=== PATIENT | female | born 1950 | race Caucasian/White ===

== ENCOUNTER 2016-09-08 09:29 | Inpatient (IN) | payer BC ==
[2016-09-05 17:35] VITALS: BMI 30.7
[~2016-09-08] VITALS: Ht 167.6 cm; Wt 96.9 kg
[2016-09-08] VITALS (19 sets, daily range): BP systolic 128–165; BP diastolic 64–86; PULSE 70–94; RESP 15–26; Ht 167.6 cm; Wt 96.9 kg
[~2016-09-08 09:29] MED LIST: CEFAZOLIN 1 GM INJ ONE; CEFAZOLIN 2 GM/50 ML (PMX) 50 ML IVPB SCH
[2016-09-08] MEDS ORDERED: LACTATED RINGER'S 1,000 ML IV* ONE (10:30)
[2016-09-08] MEDS ORDERED: ROPI1TAB PO (11:11)
[2016-09-08] MEDS ORDERED: PANT40TA4 PO (11:11)
[2016-09-08] MEDS ORDERED: LOSA100T7 PO (11:11)
[2016-09-08] MEDS ORDERED: NIFE60TA7 PO (11:11)
[2016-09-08] MEDS ORDERED: OMEG1CAP30 PO (11:11)
[2016-09-08] MEDS ORDERED: ATOR40TA68 PO (11:11)
[2016-09-08] MEDS ORDERED: HYDR-905 PO (11:11)
[2016-09-08] MEDS ORDERED: DAPA10TA PO (11:11)
[2016-09-08] MEDS ORDERED: BUPR300T48 PO (11:11)
[2016-09-08] MEDS ORDERED: SERT100T PO (11:11)
[2016-09-08] MEDS ORDERED: GABA300S PO (11:11)
[2016-09-08] MEDS ORDERED: SURGIFOAM POWDER 1 GM KIT ONE (12:23)
[2016-09-08] MEDS ORDERED: THROMBIN 5000 UNIT VIAL ONE ×2 (12:23→14:37)
[2016-09-08] MEDS ORDERED: GELATIN SIZE 100 SPONGE ONE (12:23)
[2016-09-08] MEDS ORDERED: BUPIVACAINE 0.25%/EPI (SDV) 30 ML INJ ONE (12:23)
[2016-09-08] MEDS ORDERED: CA CHLORIDE 10% 10 ML SYRINGE ONE ×2 (12:35→14:37)
[2016-09-08] MEDS ORDERED: SODIUM CL BACTERIOSTATIC 30 ML INJ ONE (12:35)
[2016-09-08] MEDS ORDERED: POLYMYXIN/BACITRACIN 1L IRRIG ONE (12:35)
[2016-09-08] MEDS ORDERED: LIDOCAINE 100 MG SYRINGE ONE (12:44)
[2016-09-08] MEDS ORDERED: DEXAMETHASONE 4 MG/ML 1 ML INJ ONE (12:44)
[2016-09-08] MEDS ORDERED: FENTAnyl 50 MCG/ML VIAL ONE ×3 (12:44→14:42)
[2016-09-08] MEDS ORDERED: GLYCOPYRROLATE 1 MG INJ ONE (12:44)
[2016-09-08] MEDS ORDERED: NEOSTIGMINE 3 MG/3 ML SYRINGE ONE (12:44)
[2016-09-08] MEDS ORDERED: ROCURONIUM 50 MG INJ ONE (12:44)
[2016-09-08] MEDS ORDERED: ONDANSETRON 4 MG INJ ONE (12:44)
[2016-09-08] MEDS ORDERED: MIDAZOLAM 1 MG/ML 2 ML INJ ONE (12:44)
[2016-09-08] MEDS ORDERED: PROPOFOL 20 ML ONE (12:44)
[2016-09-08] MEDS ORDERED: D5W-0.45 NACL + KCL 20 MEQ 1,000 ML IV SCH (12:51)
--- NOTE | 2016-09-08 12:51 | HPN ---
Date/Time of Note Date/Time of Note DATE: 09/08/16 TIME: 12:51 Interval H&P Admission Note Pt. seen H&P reviewed: No system changes VIANEY MYERS MD Sep 08, 2016 12:51
[2016-09-08] MEDS ORDERED: ACETAMINOPHEN 325 MG TAB PO PRN (13:00)
[2016-09-08] MEDS ORDERED: DIPHENHYDRAMINE 50 MG INJ IV PRN ×2 (13:00→14:00)
[2016-09-08] MEDS ORDERED: CEPASTAT LOZENGE MT PRN (13:00)
[2016-09-08] MEDS ORDERED: HYDROmorphONE 1 MG/ML SYG IV PRN (13:00)
[2016-09-08] MEDS ORDERED: BISACODYL 10 MG SUPP PR PRN (13:00)
[2016-09-08] MEDS ORDERED: HYDROCODONE/APAP (10/325) TAB PO PRN ×2 (13:00)
[2016-09-08] MEDS ORDERED: AL HYDROX/MG HYDROX/SIMETH 30 ML CUP PO PRN (13:00)
[2016-09-08] MEDS ORDERED: ONDANSETRON 4 MG INJ IV PRN ×2 (13:00→14:00)
[2016-09-08] MEDS ORDERED: NALOXONE (0.4 MG/ML) INJ IV PRN (13:00)
[2016-09-08] MEDS ORDERED: DIPHENHYDRAMINE 25 MG CAP PO PRN (13:00)
[2016-09-08] MEDS ORDERED: CEFAZOLIN 1 GM INJ ONE (13:28)
[2016-09-08] MEDS ORDERED: TRIMETHOBENZAMIDE 100 MG/ML VIAL IM PRN (14:00)
[2016-09-08] MEDS ORDERED: FENTAnyl 50 MCG/ML VIAL IV PRN ×3 (14:00)
[2016-09-08] MEDS ORDERED: HYDROmorphONE (0.2 MG/ML) 10ML SYG IV PRN ×2 (14:00)
[2016-09-08] MEDS ORDERED: MIDAZOLAM 1 MG/ML 2 ML INJ IV PRN (14:00)
[2016-09-08] MEDS ORDERED: MEPERIDINE 25 MG INJ IV PRN (14:00)
[2016-09-08] MEDS ORDERED: LABETALOL HCL 20MG INJ IV PRN (14:00)
[2016-09-08] MEDS ORDERED: hydrALAzine 20 MG INJ IV PRN (14:00)
[2016-09-08] MEDS ORDERED: EPHEDrine SULFATE 50 MG/5 ML SYG IV PRN (14:00)
[2016-09-08] MEDS: HYDROmorphONE (0.2 MG/ML) 10ML SYG IV PRN ×3 (15:30→15:48)
[2016-09-08] MEDS: HYDROmorphONE 0.2 MG/ML PCA IV SCH (15:31)
--- NOTE | 2016-09-08 15:50 | RADRPT ---
PROCEDURE: Intraoperative imaging of the lumbar spine with fluoroscopy. CLINICAL INDICATION: Back pain. Intraoperative. TECHNIQUE: 5 images of the lumbar spine were obtained in the operating room with an image intensif ier. No radiologist was in attendance. 22.9 seconds of fluoroscopy time was used. COMPARISON: No prior study is available for comparison. FINDINGS: Images demonstrate surgical instruments overlying the lower lumbar spine. IMPRESSION: 1. Intraoperative imaging of the lumbar spine. RPTAT: QQ .Reagan Reeves MD, MD Date Time Electronically viewed and signed by .Reagan Reeves MD, MD on 09/08/2016 15:50 .R/
[2016-09-08] MEDS: 1/2 NS + KCL 20 MEQ 1,000 ML IV SCH ×2 (16:51→22:04)
[2016-09-08] MEDS: CYCLOBENZAPRINE 10 MG TAB PO PRN ×2 (16:51→22:04)
[2016-09-08] MEDS: CEFAZOLIN 1 GM/50 ML (PMX) 50 ML IVPB SCH (17:35)
--- NOTE | 2016-09-08 18:13 | CONS ---
Date/Time of Note Date/Time of Note DATE: 09/08/16 TIME: 18:06 Assessment/Plan Assessment/Plan Problems: (1) Diabetes mellitus type 2 in obese Status: Chronic Comment: Her only medication is been fark Sieg as an outpatient. For now we will just observe this and keep an eye on it. (2) Obesity (BMI 30.0-34.9) Status: Chronic Comment: Counseled. When she is able to ambulate in rehab I believe that this will improve (3) Essential hypertension Status: Chronic Comment: We will continue her outpatient medication regimen. (4) Gastroesophageal reflux disease Status: Chronic Comment: Continue PPI. Therapy. Please note that evaluation for bone density and issues regarding long-term PPI therapy are deferred to her primary care physician Qualifiers: Qualified Code: K21.9 - Gastroesophageal reflux disease without esophagitis (5) Hypertriglyceridemia Status: Chronic Comment: She has hypertriglyceridemia with hypercholesterolemia. She is on both statin therapy and omega-3 fish oil appropriately and this will be continued (6) Secondary dysthymia Status: Chronic Comment: This is a reactional situation. She will be maintained on her medications will do everything we can to encourage her successful recovery from surgery (7) Aftercare following surgery of the musculoskeletal system Status: Acute Comment: Immediately postop and doing well Consultation Date/Type/Reason Admit Date/Time Sep 08, 2016 at 09:29 Date of Consultation: Sep 08, 2016 Type of Consultation: Internal medicine Reason for Consultation Postoperative care following lumbar spinal fusion Referring Provider: VIANEY MYERS MD Hx of Present Illness 66-year-old female brought in electively for lumbar spinal correction after failure of all conservative medical treatments. Please note the patient is anxious about recuperating as fast as possible due to recent diagnosis and her spouse of a lung carcinoma Patient is resting in bed and postoperatively. She has been cleared for the surgery by her primary care farm mortgage agent Dr. Rosanne Duarte Constitutional: no complaints Eyes: no complaints ENT: no complaints Respiratory: no complaints Cardiovascular: no complaints Gastrointestinal: no complaints Genitourinary: no complaints Musculoskeletal: back pain Skin: no complaints Neurologic: no complaints Past Medical History Restless leg syndrome; lipoma; history of HSV-2; gastroesophageal reflux disease ; irritable bowel syndrome; osteoarthritis/DJD Medical History: diabetes (Type II), high cholesterol, hypertension Past Surgical History Status post tonsillectomy and adenoidectomy; status post left total shoulder replacement 2015; status post septoplasty 2012; status post rhinoplasty; status post tonsillectomy; status post LEEP procedure Family History Significant Family History: diabetes Social History Alcohol Use: rarely Smoking Status: Never smoker Drug Use: none Other Social History lives with her spouse. Please note her spouse has recently been diagnosed with a lung cancer and is starting radiation therapy. Exam/Review of Systems Vital Signs Vitals Vital Signs Date Time Temp Pulse Resp B/P Pulse Ox O2 Delivery O2 Flow Rate FiO2 09/08/16 17:00 16 09/08/16 16:45 Nasal Cannula 3.0 09/08/16 16:20 78 135/75 96 09/08/16 15:41 98.9 Exam Constitutional: alert, oriented Eyes: EOMI, nl conjunctiva, nl lids ENMT: nl external ears & nose, nl lips & teeth, nl nasal mucosa & septum Neck: non-tender, supple Respiratory: clear to auscultation, normal air movement Cardiovascular: nl pulses, regular rate and rhythm Gastrointestinal: nl liver, spleen, non-tender, soft Extremities: normal pulses Neurological: ROCK CONTRACTOR II-XII intact, nl mental status, nl speech, nl strength Lymph: nl lymph nodes Medications Medications Current Medications Acetaminophen/ Hydrocodone Bitart ([place] (10/325)) 1 tab Q4H PRN PO PAIN LEVEL 1-5; Start 09/08/16 at 13:00 Acetaminophen/ Hydrocodone Bitart ([place] (10/325)) 2 tab Q4H PRN PO PAIN LEVEL 6-10; Start 09/08/16 at 13:00 Hydromorphone HCl 0.2 mg 0.2 mg Q1H PRN IV BREAKTHROUGH PAIN; Start 09/08/16 at 13:00 Cefazolin Sodium (Ancef 1 Gm/50 ml (Pmx)) 50 ml @ 100 mls/hr Q8H IVPB Last administered on 09/08/16t 17:35; Admin Dose 100 MLS/HR; Start 09/08/16 at 18:00 ; Stop 09/09/16 at 10:29 Ondansetron HCl (Zofran Inj) 4 mg Q6H PRN IV NAUSEA AND/OR VOMITING; Start at 13:00 Bisacodyl (Dulcolax Supp) 10 mg DAILY PRN [place] CONSTIPATION; Start 09/08/16 at 13 :00 Docusate Sodium (Colace) 100 mg BID PO ; Start 09/08/16 at 21:00 Pantoprazole (Protonix Iv) 40 mg DAILY@06 IV ; Start 09/09/16 at 06:00 Al Hydrox/Mg Hydrox/Simethicone (Mag-Al Plus) 15 ml Q6H PRN PO CONSTIPATION/ DYSPEPSIA; Start 09/08/16 at 13:00 Acetaminophen (Tylenol Tab) 650 mg Q4H PRN PO DEWITT OR TEMP GREATER THAN 101.3F; Start 09/08/16 at 13:00 Cyclobenzaprine HCl (Flexeril) 10 mg TID PRN PO MUSCLE SPASMS Last administered on 09/08/16 16:51; Admin Dose 10 MG; Start 09/08/16 at 13:00 Phenol (Cepastat Lozenge) 1 lozenge PRN PRN MT SORE THROAT; Start 09/08/16 at 13:00 Diphenhydramine HCl (Benadryl) 25 mg Q6H PRN PO ITCHING; Start 09/08/16 at 13: 00 Diphenhydramine HCl (Benadryl) 25 mg Q6H PRN IV ITCHING Last administered on 15:29; Admin Dose 25 MG; Start 09/08/16 at 13:00 Naloxone HCl (Narcan) 0.2 mg Q2M PRN IV RR 8 BREATHS/MIN OR LESS; Start at 13:00 Hydromorphone HCl (Dilaudid TRACTOR OPERATOR HELPER) TRACTOR OPERATOR HELPER to be started in PACU Q4PCA IV Last administered on 09/08/16 15:31; Admin Dose 6 MG; Start 09/08/16 at 13:00 Miscellaneous Information 1. Hold TRACTOR OPERATOR HELPER at 1,000... TRACTOR OPERATOR HELPER IV ; Start 09/08/16 at 13: 00 Potassium Chloride/Sodium Chloride (1/2 NS + KCl 20 Meq) 1,000 ml @ 100 mls/hr Q10H IV Last administered on 09/08/16 16:51; Admin Dose 100 MLS/HR; Start at 17:00 BRIA SALDAÑA MD Sep 08, 2016 18:12
--- NOTE | 2016-09-08 20:40 | OPR ---
DATE OF OPERATION: 09/08/2016 PREOPERATIVE DIAGNOSES: 1. L4-5, L5-S1 degenerative scoliosis and stenosis. 2. Radiculopathy. 3. Morbid obesity. Body mass index 38. POSTOPERATIVE DIAGNOSES: 1. L4-5, L5-S1 degenerative scoliosis and stenosis. 2. Radiculopathy. 3. Morbid obesity. Body mass index 38. OPERATION PERFORMED: 1. Left L4-5 and L5-S1 decompression with decompression of left L4, L5, and S1 nerve roots for sten osis. 2. Left L5 extraforaminal decompression. 3. Use of operative microscope. 4. Lateral localizing film x2. 5. Intraoperative neuromonitoring (2 hours). 6. Epidural injection via catheter. PRIMARY SURGEON: Serge Daugherty MD STRAWHAT BLOCKING OPERATOR: SOUMYA Chinchilla NEED FOR FEEDER LOADER: During this spinal surgical procedure, my assistant chief nursing officer was used to retrac t and protect the spinal nerves and dural sac. My assistant chief nursing officer also employed the suction catheters to evacuate blood from the surgical field to improve visualization of the neural structures. The navarro tant was medically necessary to facilitate the completion of the surgery in a safe and expeditious marisol. State of [place] regulations, as well as hospital bylaws, preclude the use of non-license d health care personnel, such as operating room technicians, to perform these functions. FINDINGS: Neuromonitoring at the start of the case revealed left L4 amplitude down 50%, left L5 amp litude down 20%, left S1 amplitude down 60%. At the end of the case, nerve signals returned to norm al. The patient had stenosis due to ligamentum and facet hypertrophy. ESTIMATED BLOOD LOSS: 30 mL. DRAINS: Two. SPECIMENS: None. COMPLICATIONS OF PROCEDURES: None. ANESTHESIOLOGIST: Avery Buchanan MD TYPE OF ANESTHESIA: General. INDICATIONS FOR PROCEDURE: This is a 66-year-old female with left lumbosacral radiculopathy in the setting of stenosis. She has failed nonoperative measures; therefore, I recommended proceeding with the above-mentioned surgery. Preoperatively, we discussed the risks, benefits, and alternatives. She understood and wished to proceed. DESCRIPTION OF PROCEDURE IN DETAIL: The patient was identified in the preoperative holding area, [facility], taken to the operating room, where she was successfully placed under general a nesthesia by Dr. Buchanan. Neuromonitoring leads were placed. Sequential compressive devices were applied. Neuromonitoring was utilized during the procedure for 2 hours to include SSEP, MEP, and E MG. This was performed by [place] Storkwitz. Start time was 1:15 p.m. Closure time was 3:15 p.m. The patient was placed in the operative table in prone position over a Nelson frame. All bony promi nences were well padded. The back was then prepped and draped in usual sterile fashion. Using the C-arm fluoroscope, I identified the incision site. I anesthetized skin, subcutaneous tissue, and pa raspinal musculature with 0.25% Marcaine and epinephrine. Incision was then made over the L4-5 and L5-S1 levels. The patient had morbid obesity with 4 inches of adipose tissue between the skin and t he dorsal fascia. The dorsal fascia was incised, and I subperiosteally dissected the L4, L5, and S1 lamina on the left. Due to the patient's obesity, I extended instrumentation to be utilized in ord er to perform the procedure. Once exposure was made, I took lateral film to confirm the correct lev els. Once this was confirmed, microscope was brought in. A left-sided decompression was performed at the L4-5 and L5-S1 levels. Laminectomy was performed. Ligamentum flavum was sharply dissected. I decompressed the canal and decompressed left L4, L5, and S1 nerve roots with visualization of eac h nerve root. Once this was done, the left L5 signal was still down, and therefore, I performed an extraforaminal left-sided decompression of the L5 nerve root using the 10 mm [employer] shaver and neuro monitoring. Once this was done, all nerve signals returned to normal. I irrigated the wound. I ir rigated the foramen. I injected Surgifoam into the wound and into the foramen. Hemostasis was achi eved. The wound was then irrigated. Valsalva maneuver was performed and there was no leak of CSF. The microscope was taken off the field. Of note, the C-arm was utilized during the [place] procedur e. I then passed an epidural catheter through which I injected 100 mcg of fentanyl and the catheter was pulled. Anesthesiologist mary kate peripheral blood, which was spun using the Bokecc device, and took the platelet-poor plasma and mixed this with thrombin and injected this over the dura for hemos tatic purposes. I then placed a deep subfascial drain and closed the deep fascia with #1 Vicryl sti tch. I then placed a superficial drain and closed the subcutaneous tissue with 2-0 Vicryl stitch. A 4-0 Monocryl closure was then performed. Dermabond and sterile dressings were then applied. The patient was then awakened from anesthesia and taken to recovery room in stable condition. Lap, spon ge, and instrument counts were correct x2. There were no apparent complications during the procedur e. The patient will be admitted to the orthopedic [facility] for routine postoperative care to include pain c ontrol, neurovascular checks, antibiotics, and physical therapy. Dictated By: SERGE COLINDRES/GAYLE Conf#: [id number] DID#: [id number]
[2016-09-08] MEDS: FISH OIL 1,000 MG CAP PO SCH (20:54)
[2016-09-08] MEDS: DOCUSATE SODIUM 100 MG CAP PO SCH (20:54)
[2016-09-08] MEDS: ATORVASTATIN 40 MG TAB PO SCH (20:54)
[2016-09-08] MEDS: ROPINIROLE 1 MG TAB PO SCH (20:56)
[2016-09-08] MEDS: GABAPENTIN 400 MG CAP PO SCH (20:56)
[2016-09-08] MEDS ORDERED: NIFEdipine (XL) 60 MG TAB PO ONE (21:00)
[2016-09-09] MEDS: CEFAZOLIN 1 GM/50 ML (PMX) 50 ML IVPB SCH ×2 (00:59→09:34)
[2016-09-09] MEDS: HYDROmorphONE 0.2 MG/ML PCA IV SCH (02:26)
[2016-09-09] MEDS: CYCLOBENZAPRINE 10 MG TAB PO PRN ×2 (04:28→13:27)
[2016-09-09 04:37] VITALS: BP 121/67; PULSE 79
[2016-09-09] MEDS ORDERED: PANTOPRAZOLE 40 MG INJ IV SCH (06:00)
[2016-09-09 06:14] LABS: POTASSIUM 4.6 mmol/L (3.5-5.1)
[2016-09-09 06:17] LABS: CREATININE 0.94 mg/dl (0.44-1.00)
[2016-09-09 06:18] LABS: CALCIUM 9.1 mg/dl (8.4-10.2)
[2016-09-09] MEDS: PANTOPRAZOLE (EC) 40 MG TAB PO SCH (06:22)
[2016-09-09 06:23] LABS: BASOPHILS % 0.1 % (0.0-2.0); EOSINOPHILS % 0.1 % (0.0-7.0); HEMATOCRIT 36.9 % (37.0-47.0); LYMPHOCYTES # 0.9 10^3/ul (0.8-2.9); LYMPHOCYTES % 8.6 % (15.0-51.0); MEAN CORPUSCULAR HEMOGLOBIN 28.1 pg (29.0-33.0); MEAN CORPUSCULAR HGB CONC 32.5 g/dl (32.0-37.0); MEAN CORPUSCULAR VOLUME 86.5 fl (82.0-101.0); MEAN PLATELET VOLUME 7.8 fl (7.4-10.4); MONOCYTE # 0.7 10^3/ul (0.3-0.9); MONOCYTES % 6.7 % (0.0-11.0); NEUTROPHIL # 8.9 10^3/ul (1.6-7.5); NEUTROPHILS % 84.5 % (39.0-77.0); PLATELET COUNT 310 10^3/UL (140-440); RED BLOOD COUNT 4.27 10^6/ul (4.20-5.40); UNCORRECTED WBC 10.5 10^3/ul (4.8-10.8); WHITE BLOOD COUNT 10.5 10^3/ul (4.8-10.8)
[2016-09-09 06:38] LABS: CONDITION 1; LH ANALYZER COMMENTS 1
--- NOTE | 2016-09-09 07:45 | PN ---
Date/Time of Note Date/Time of Note DATE: 09/09/16 TIME: 07:43 Assessment/Plan Lines/Catheters IV Catheter Type (from Nrsg): Peripheral IV [place] in Place (from Nrsg): No Assessment/Plan Chief Complaint/Hosp Course status post decompression Problems: Assessment/Plan continue with pain mgmt possible d/clater today if cleared by PT Subjective 24 Hr Interval Summary minimal pain Exam/Review of Systems Vital Signs Vitals Vital Signs Date Time Temp Pulse Resp B/P Pulse Ox O2 Delivery O2 Flow Rate FiO2 09/09/16 05:00 19 09/09/16 04:37 98.3 79 121/67 97 Nasal Cannula 2.0 Intake and Output 09/08/16 09/08/16 09/09/16 15:00 23:00 07:00 Intake Total 2280 ml 2250 ml Output Total 97 ml 40 ml Balance 2183 ml 2210 ml Exam Free Text/Dictation nvi no calf pain dressing intact Results Result Diagram: 09/09/16 0430 09/09/16 0430 VIANEY MYERS MD Sep 09, 2016 07:45
[2016-09-09] MEDS ORDERED: OXYCODONE/ACETAMINOPHEN (10/325) TAB PO PRN (08:00)
[2016-09-09 08:17] VITALS: BP 136/62; RESP 18
[2016-09-09] MEDS: DOCUSATE SODIUM 100 MG CAP PO SCH ×2 (09:31→21:16)
[2016-09-09] MEDS: FISH OIL 1,000 MG CAP PO SCH ×2 (09:32→21:19)
[2016-09-09] MEDS: BUPROPION (XL) 150 MG TAB PO SCH (09:32)
[2016-09-09] MEDS: LOSARTAN 50 MG TAB PO SCH (09:32)
[2016-09-09] MEDS: SERTRALINE 100 MG TAB PO SCH (09:33)
[2016-09-09] MEDS: GABAPENTIN 400 MG CAP PO SCH ×3 (09:33→21:16)
[2016-09-09] MEDS: NIFEdipine (XL) 60 MG TAB PO SCH (09:33)
[2016-09-09] MEDS: OXYCODONE/ACETAMINOPHEN (10/325) TAB PO PRN ×2 (09:49→13:28)
[2016-09-09] MEDS: 1/2 NS + KCL 20 MEQ 1,000 ML IV SCH ×2 (13:00→22:56)
--- NOTE | 2016-09-09 14:23 | PN ---
Date/Time of Note Date/Time of Note DATE: 09/09/16 TIME: 14:21 Assessment/Plan VTE Prophylaxis VTE Prophylaxis Intervention: SCD's Lines/Catheters IV Catheter Type (from [facility]): Saline Lock Urinary Cath still in place: No Assessment/Plan Chief Complaint/Hosp Course 66-year-old female brought in electively for lumbar spinal correction after failure of all conservative medical treatments. Please note the patient is anxious about recuperating as fast as possible due to recent diagnosis and her spouse of a lung carcinoma Problems: (1) Aftercare following surgery of the musculoskeletal system Status: Acute Comment: She is progressing nominally and well. There is no evidence of any postoperative complications. At this time due to physical pain and some of the social consideration she will stay overnight with plan discharge tomorrow (2) Essential hypertension Status: Chronic Comment: Well-controlled (3) Diabetes mellitus type 2 in obese Status: Chronic Comment: Well-controlled Subjective 24 Hr Interval Summary Free Text/Dictation Patient reports some back pain at the surgical site but reports that her leg pain is possibly less Respiratory: no complaints Cardiovascular: no complaints Exam/Review of Systems Vital Signs Vitals Vital Signs Date Time Temp Pulse Resp B/P Pulse Ox O2 Delivery O2 Flow Rate FiO2 09/09/16 11:02 18 09/09/16 08:17 98.2 79 136/62 92 09/09/16 04:37 Nasal Cannula 2.0 Intake and Output 09/08/16 09/08/16 09/09/16 15:00 23:00 07:00 Intake Total 2280 ml 2250 ml Output Total 97 ml 40 ml Balance 2183 ml 2210 ml Exam Constitutional: alert, oriented Cardiovascular: nl pulses, regular rate and rhythm Results Result Diagram: 09/09/16 0430 09/09/16 0430 Results 24 hrs Laboratory Tests Test 09/09/16 04:30 Anion Gap 19 H Basophils # 0.0 Basophils % 0.1 Blood Morphology Comment Blood Urea Nitrogen 24 H Calcium Level 9.1 Carbon Dioxide Level 25 Chloride Level 102 Creatinine 0.94 Eosinophils # 0.0 Eosinophils % 0.1 Glucose Level 128 Hematocrit 36.9 L Hemoglobin 12.0 Lymphocytes # 0.9 Lymphocytes % 8.6 L Magnesium Level 2.0 Mean Corpuscular Hemoglobin 28.1 L Mean Corpuscular Hemoglobin Concent 32.5 Mean Corpuscular Volume 86.5 Mean Platelet Volume 7.8 Monocytes # 0.7 Monocytes % 6.7 Neutrophils # 8.9 H Neutrophils % 84.5 H Nucleated Red Blood Cells # 0.0 Nucleated Red Blood Cells % 0.0 Platelet Count 310 Potassium Level 4.6 Red Blood Count 4.27 Red Cell Distribution Width 17.0 H Sodium Level 141 White Blood Count 10.5 Medications Medications Current Medications Hydromorphone HCl (Dilaudid) 0.2 mg Q1H PRN IV BREAKTHROUGH PAIN; Start at 13:00 Ondansetron HCl (Zofran Inj) 4 mg Q6H PRN IV NAUSEA AND/OR VOMITING; Start at 13:00 Bisacodyl (Dulcolax Supp) 10 mg DAILY PRN [place] CONSTIPATION; Start 09/08/16 at 13 :00 Docusate Sodium (Colace) 100 mg BID PO Last administered on 09/09/16 09:31; Admin Dose 100 MG; Start 09/08/16 at 21:00 Pantoprazole (Protonix Iv) 40 mg DAILY@06 IV ; Start 09/09/16 at 06:00 Al Hydrox/Mg Hydrox/Simethicone (Mag-Al Plus) 15 ml Q6H PRN PO CONSTIPATION/ DYSPEPSIA; Start 09/08/16 at 13:00 Acetaminophen (Tylenol Tab) 650 mg Q4H PRN PO DEWITT OR TEMP GREATER THAN 101.3F; Start 09/08/16 at 13:00 Cyclobenzaprine HCl (Flexeril) 10 mg TID PRN PO MUSCLE SPASMS Last administered on 09/09/16 13:27; Admin Dose 10 MG; Start 09/08/16 at 13:00 Phenol (Cepastat Lozenge) 1 lozenge PRN PRN [place] SORE THROAT; Start 09/08/16 at 13:00 Diphenhydramine HCl (Benadryl) 25 mg Q6H PRN PO ITCHING Last administered on 11:30; Admin Dose 25 MG; Start 09/08/16 at 13:00 Diphenhydramine HCl (Benadryl) 25 mg Q6H PRN IV ITCHING Last administered on 15:29; Admin Dose 25 MG; Start 09/08/16 at 13:00 Naloxone HCl (Narcan) 0.2 mg Q2M PRN IV RR 8 BREATHS/MIN OR LESS; Start at 13:00 Hydromorphone HCl (Dilaudid GRINDING MACHINE TENDER) GRINDING MACHINE TENDER to be started in PACU Q4PCA IV Last administered on 09/09/16 02:26; Admin Dose 6 MG; Start 09/08/16 at 13:00 Miscellaneous Information 1. Hold GRINDING MACHINE TENDER at 1,000... GRINDING MACHINE TENDER IV ; Start 09/08/16 at 13: 00 Potassium Chloride/Sodium Chloride (08/25 NS + KCl 20 Meq) 1,000 ml @ 100 mls/hr Q10H IV Last administered on 09/08/16 22:04; Admin Dose 100 MLS/HR; Start at 17:00 Gabapentin (Neurontin) 400 mg TID PO Last administered on 09/09/16 13:27; Admin Dose 400 MG; Start 09/08/16 at 21:00 Atorvastatin Calcium (Lipitor) 40 mg HS PO Last administered on 09/08/16 20:54 ; Admin Dose 40 MG; Start 09/08/16 at 21:00 Losartan Potassium (Cozaar) 100 mg DAILY PO Last administered on 09/09/16 09: 32; Admin Dose 100 MG; Start 09/09/16 at 09:00 Fish Oil (Fish Oil) 2,000 mg BID PO Last administered on 09/09/16 09:32; Admin Dose 2,000 MG; Start 09/08/16 at 21:00 Bupropion HCl (Wellbutrin Xl) 300 mg DAILY PO Last administered on 09/09/16 09 :32; Admin Dose 300 MG; Start 09/09/16 at 09:00 Pantoprazole (Protonix Tab) 40 mg DAILY@06 PO Last administered on 09/09/16 06 :22; Admin Dose 40 MG; Start 09/09/16 at 06:00 Nifedipine (Procardia Xl) 60 mg DAILY PO Last administered on 09/09/16 09:33; Admin Dose 60 MG; Start 09/09/16 at 09:00 Sertraline HCl (Zoloft) 100 mg DAILY PO Last administered on 09/09/16 09:33; Admin Dose 100 MG; Start 09/09/16 at 09:00 Ropinirole HCl (Requip) 3 mg QPM PO Last administered on 09/08/16 20:56; Admin Dose 3 MG; Start 09/08/16 at 21:00 Oxycodone/ Acetaminophen (Endocet (10 325)) 1 tab Q4H PRN PO PAIN LEVEL 1-5; Start 09/09/16 at 08:00 Oxycodone/ Acetaminophen (Endocet (10/ 325)) 2 tab Q4H PRN PO PAIN LEVEL 6-10 Last administered on 09/09/16 13:28; Admin Dose 2 TAB; Start 09/09/16 at 08:00 BRIA SALDAÑA MD Sep 09, 2016 14:23
[2016-09-09 20:31] VITALS: BP 97/58; RESP 20
[2016-09-09] MEDS: ATORVASTATIN 40 MG TAB PO SCH (21:16)
[2016-09-09] MEDS: ROPINIROLE 1 MG TAB PO SCH (21:20)
[2016-09-10] MEDS: OXYCODONE/ACETAMINOPHEN (10/325) TAB PO PRN ×3 (00:44→14:06)
[2016-09-10] MEDS: CYCLOBENZAPRINE 10 MG TAB PO PRN ×3 (01:43→14:27)
[2016-09-10] MEDS: PANTOPRAZOLE (EC) 40 MG TAB PO SCH (05:55)
[2016-09-10 07:47] VITALS: BP 132/74; PULSE 73; RESP 16
[2016-09-10] MEDS: FISH OIL 1,000 MG CAP PO SCH (08:15)
[2016-09-10] MEDS: DOCUSATE SODIUM 100 MG CAP PO SCH (08:15)
[2016-09-10] MEDS: BUPROPION (XL) 150 MG TAB PO SCH (08:15)
[2016-09-10] MEDS: GABAPENTIN 400 MG CAP PO SCH ×2 (08:16→12:26)
[2016-09-10] MEDS: NIFEdipine (XL) 60 MG TAB PO SCH (08:16)
[2016-09-10] MEDS: LOSARTAN 50 MG TAB PO SCH (08:16)
[2016-09-10] MEDS: SERTRALINE 100 MG TAB PO SCH (08:16)
[2016-09-10] MEDS: 1/2 NS + KCL 20 MEQ 1,000 ML IV SCH (08:17)
--- NOTE | 2016-09-10 09:20 | DS ---
Date/Time of Note Date/Time of Note DATE: 09/10/16 TIME: 09:18 Discharge Summary Admission/Discharge Info Admit Date/Time Sep 08, 2016 at 09:29 Discharge Date/Time September 10, 2016 Final Diagnosis Status post lumbar decompression Procedures The patient was taken to the operating room on September 08 and underwent lumbar decompression Hospital Course status post decompression Home Meds Reported Medications Sertraline Hcl* (Zoloft*) 100 Mg Tablet, 100 MG PO DAILY, #30 TAB 09/08/16 Bupropion Hcl* (Wellbutrin XL*) 300 Mg Tab.sr.24h, 300 MG PO DAILY, TAB.SA 09/08/16 Ropinirole Hcl* (Ropinirole Hcl*) 1 Mg Tablet, 1 MG PO TID, TAB 09/08/16 Pantoprazole* (Pantoprazole*) 40 Mg Tablet.dr, MG PO DAILY, TAB 09/08/16 [place]-3 Fatty Acids/Fish Oil ([place] 3 Fish Oil Softgel) 1 Each Capsule.dr, 1 EACH PO 09/08/16 Hydrocodone/Acetaminophen ([place] 7.5-325 Tablet) 1 Each Tablet, 1 EACH PO, TAB 09/08/16 Nifedipine* (Nifedipine ER*) 60 Mg Tablet.sa, 60 MG PO DAILY, TAB.SA 09/08/16 Losartan Potassium* (Losartan Potassium*) 100 Mg Tablet, 100 MG PO DAILY, TAB 09/08/16 Atorvastatin* (Atorvastatin*) 40 Mg Tablet, 40 MG PO QHS, #30 TAB 09/08/16 Gabapentin (GABAPENTIN) 300 Mg/6 Ml Solution, 300 MG PO 09/08/16 Dapagliflozin Propanediol (Farxiga) 10 Mg Tablet, 10 MG PO DAILY, #30 TAB 09/08/16 Follow-up Plan The patient was admitted to the orthopedic [facility] after undergoing the above surgery. Her postoperative course was uncomplicated. By postoperative day 2 she was deemed stable for discharge with follow-up arranged with the undersigned VIANEY MYERS MD Sep 10, 2016 09:19
== END 2016-09-10 16:10 | disposition home or self-care (01) | DRG 517 ==
LOC: REC 09:29 → MS1 16:32
PROVIDERS: ADMIT Specialist; ATTEND Specialist
PROC: 01NR0ZZ Release Sacral Nerve, Open Approach (ICD-10-PCS; 2016-09-08)
PROC: 4A10X4G Monitoring of Central Nervous Electrical Activity, Intraoperative, External Approach (ICD-10-PCS; 2016-09-08)
PROC: 01NB0ZZ Release Lumbar Nerve, Open Approach (ICD-10-PCS; principal; 2016-09-08 12:00)
DX: M41.57 Other secondary scoliosis, lumbosacral region (principal); E66.01 Morbid (severe) obesity due to excess calories; I10 Essential (primary) hypertension; M54.17 Radiculopathy, lumbosacral region; E11.9 Type 2 diabetes mellitus without complications; K21.9 Gastro-esophageal reflux disease without esophagitis; E78.1 Pure hyperglyceridemia; F34.1 Dysthymic disorder; N18.9 Chronic kidney disease, unspecified; T39.395S Adverse effect of other nonsteroidal anti-inflammatory drugs [NSAID], sequela; Z68.38 Body mass index [BMI] 38.0-38.9, adult
CPT/HCPCS: 72110; 80048; 83735; 85025; 86999; 97116; 97162; 97530; J0690; J1100; J1170; J1200; J2001; J2250; J2405; J2710; J3010; J3480